=== PATIENT | female | born 1990 | race Caucasian/White ===

== ENCOUNTER → 2020-02-18 15:10 | Outpatient (CLI) | payer MEDICAID, SELFPAY ==
[2020-02-18 16:02] LABS: Basophils # 0.1 K/mm3 (0-0.2); Eosinophils # 0.3 K/mm3 (0.0-0.4); Eosinophils % 6.4 % (0.1-12.0); Hematocrit 43.1 % (37.0-47.0); Hemoglobin 14.7 g/dL (12.2-16.2); Lymphocytes # 1.7 K/mm3 (0.7-4.5); Lymphocytes % 34.7 % (10-50); Mean Corpuscular HGB Conc 34.1 g/dL (31.8-35.4); Mean Corpuscular Hemoglobin 31.1 pg (27.0-31.2); Mean Corpuscular Volume 91.2 fl (81-99); Mean Platelet Volume 8.4 fl (7.4-10.4); Monocytes # 0.3 K/mm3 (0.1-1.0); Monocytes % 5.9 % (1.7-9.3); Neutrophils # 2.5 K/mm3 (1.8-7.8); Neutrophils % 51.9 % (37.0-80.0); Platelet Count 292 K/mm3 (142-424); Red Blood Count 4.73 M/mm3 (4.20-5.40); Red Cell Distribution Width 13.2 % (11.5-17.5); White Blood Count 4.8 K/mm3 (4.8-10.8)
[2020-02-18 16:52] LABS: Alanine Aminotransferase 17 U/L (12-78); Albumin Level 4.3 g/dl (3.5-5.0); Albumin/Globulin Ratio 1.3 (1.1-1.8); Alkaline Phosphatase 108 U/L (38-126); Anion Gap 12.5 mEq/L (5-15); Aspartate Amino Transferase 25 U/L (14-36); Bilirubin,Total 0.5 mg/dl (0.2-1.3); Blood Urea Nitrogen 9 mg/dl (7-17); Calcium 9.8 mg/dl (8.4-10.2); Carbon Dioxide 27 mmol/L (22.0-30.0); Chloride 102 mmol/L (98-107); Chol/HDL Ratio 3.4 (1-3.5); Cholesterol 173 mg/dl (140-200); Estimated Glomerular Filt Rate 85 ml/min (>60); GFR (African American) 103 ML/MIN (>60); Globulin 3.3 g/dL (1.3-3.2); Glucose 89 mg/dl (74-100); HDL Cholesterol 51 mg/dl (40-60); Potassium 4.5 mmoL/L (3.5-5.1); Sodium 137 mmol/L (136-145); Total Protein,Serum 7.6 g/dl (6.3-8.2); Triglycerides 114 mg/dl (30-150); VLDL Cholesterol 23 mg/dL (0-40)
[2020-02-18 17:10] LABS: T4 (Thyroxine) 9.6 ug/dl (5.53-11.0)
[2020-02-18 17:23] LABS: Thyroid Stimulating Hormone 1.13 uIU/mL (0.465-4.68)
== END ==
PROVIDERS: Visit Provider Family Medicine
DX: E03.9 Hypothyroidism, unspecified (principal); R11.2 Nausea with vomiting, unspecified
CPT/HCPCS: 80053; 80061; 84436; 84443; 85025

== ENCOUNTER 2021-09-08 16:37 | Emergency (ER) | payer MEDICAID, SELFPAY ==
[2021-09-08 16:40] VITALS: BP 139/87; PULSE 90; RESP 18; TEMP 36.7; O2SAT 98; BMI 42.5
--- NOTE | 2021-09-08 16:52 | HMH.EDUTC ---
[facility] [place] Clinical Impression: Bee sting reaction Qualifiers: Encounter type: initial encounter Injury intent: undetermined intent Qualified Code(s): T63.444A - Toxic effect of venom of bees, undetermined, initial encounter Disposition: Home, Self-Care Condition on Discharge: Good Instructions: How to Care for an Insect Bite or Sting, DI for Insect Bites and Stings, DI for General Allergic Reactions Additional Instructions: Over the counter ibuprofen may help with pain Over the counter benadryl may help with reactions and itching Start oral steriods tomorrow Discuss with Family Physician about allergy testing Return if needed Prescriptions: methylPREDNISolone [Medrol 4mg tab] 4 mg PO DIRECTED #21 tab Transmission Status: Received by [facility] #[id number] Referrals: Oscar Escobar MD [Primary Care Provider] - As needed Medical Decision Making - Kavin Inquiry Pt receiving controlled substance: No Kavin was queried for this patient: No Vital Signs: 09/08/21 16:40 09/08/21 17:17 Temperature 98.0 F 98.0 F Temperature Source Oral Pulse Rate 90 Pulse Rate [Right Brachial] 90 Respiratory Rate 18 18 Blood Pressure 139/87 Blood Pressure [Right Arm] 139/87 Blood Pressure Mean [Right Arm] 104 Blood Pressure Source [Right Arm] Automatic Cuff Blood Pressure Position [Right Arm] Sitting 02 Sat by Pulse Oximetry 98 Oxygen Delivery Method Room Air Orders (Tests/Meds): ED MEDICATIONS Discontinued Medications Generic Name Dose Route Start Last Admin Trade Name Freq PRN Reason Stop Dose Admin Famotidine 20 mg 09/08/21 17:01 09/08/21 17:16 Famotidine 20mg Tablet PO 09/08/21 17:02 20 mg ONCE ONE Administration Methylprednisolone Sodium Succinate 125 mg 09/08/21 17:01 09/08/21 17:15 Methylprednisolone Sod Succ 125mg Vial IM 09/08/21 17:02 125 mg ONCE ONE Administration Medical Decision Narrative: redness and swelling much improved [facility] [place] - General Stated complaint: rash R arm Time Seen by Provider: 09/08/21 16:52 Mode of Arrival: Ambulatory Source of Information: Patient Limitations: No Limitations Description of Symptoms (Recalled from Triage Doc. by RN): PATIENT C/O WASP STING TO RIGHT UPPER ARM YESTERDAY WITH REDNESS, WARMTH AND SWELLING TO AREA HEENT Symptoms (Recalled from RN notes): No Resp Symptoms (Recalled from RN notes): No Skin Symptoms (Recalled from RN notes): Yes MS Symptoms (Recalled from RN notes): No Functional Status (Recalled from RN notes): WNL - History of Present Illness Provider Complaint: Patient states that she accidently leaned against a wasp that was on the wall with her right arm States that it stung her in her right upper arm just above her elbow area and states that since then the redness has continued to get worse and it warm and tender so she came in States that she is not allergic that she knows of but feels like she is having a reaction to the bee stings - Related Data Home Medications Medication Instructions Recorded Confirmed cyclobenzaprine 10 mg tablet 10 mg PO BID PRN tab 08/20/19 10/26/20 ibuprofen 800 mg tablet 800 mg PO Q8H PRN tab 08/20/19 10/26/20 meloxicam 15 mg tablet 15 mg PO DAILY tab 08/20/19 10/26/20 Previous Rx's Medication Instructions Recorded divalproex 250 mg tablet,delayed See Rx Instructions .ROUTE 10/13/20 release .COMPLEX #270 tab lisinopril 20 mg tablet 20 mg PO DAILY #90 tab 10/26/20 ondansetron HCl 4 mg tablet 4 mg PO Q6H PRN #60 tab 10/26/20 phentermine 37.5 mg capsule 37.5 mg PO DAILY #30 cap 10/26/20 amitriptyline 25 mg tablet See Rx Instructions .ROUTE 12/09/20 .COMPLEX #30 tab rimegepant 75 mg disintegrating 75 mg PO ONCE PRN #8 tab 12/23/20 tablet azithromycin 500 mg tablet 500 mg PO DAILY 3 Days #3 tab 02/04/21 methylprednisolone 4 mg tablets in See Rx Instructions PO PER PKG DIR 02/04/21 a dose pack #21 tab sertraline 100 mg tablet 100 mg PO DAILY #90 tab
[2021-09-08 17:17] VITALS: BP 139/87; PULSE 90; RESP 18; TEMP 36.7; O2SAT 98
== END 2021-09-08 17:25 | disposition home or self-care (01) ==
PROVIDERS: Emergency Provider Nurse Practitioner; PCP Family Medicine
DX: T63.461A Toxic effect of venom of wasps, accidental (unintentional), initial encounter (principal)
CPT/HCPCS: 99212; G0463